=== PATIENT | male | born 1975 | race Hispanic/Latino ===

== ENCOUNTER 2021-07-17 18:33 | Observation (INO) | payer MEDICARE, OTHER ==
[~2021-07-17] VITALS: Ht 182.9 cm; Wt 133.7 kg
[2021-07-17 18:58] LABS: BASOPHILS % (AUTO) 0.6 % (0.0-5.0); EOSINOPHILS % (AUTO) 3.5 % (0.0-8.0); HEMATOCRIT 42.1 % (42-54); LYMPHOCYTES % (AUTO) 31.2 % (21.0-51.0); MEAN CORPUSCULAR HEMOGLOBIN 31.3 pg (27.0-33.0); MEAN CORPUSCULAR HGB CONC 33.5 g/dL (32.0-36.0); MEAN CORPUSCULAR VOLUME 93.6 fL (79-99); MONOCYTES % (AUTO) 7.7 % (3.0-13.0); NEUTROPHILS % (AUTO) 56.7 % (40.0-77.0); PLATELET COUNT (AUTO) 214 K/uL (130-400); RED CELL DISTRIBUTION WIDTH 12.1 % (11.0-15.5); WHITE BLOOD COUNT (AUTO) 6.9 K/uL (4.8-10.8)
[2021-07-17 19:15] LABS: B-TYPE NATRIURETIC PEPTIDE 15 pg/mL (0-100)
[2021-07-17 19:19] LABS: CREATININE 1.2 mg/dL (0.5-1.5); POTASSIUM 4.2 mmol/L (3.5-5.1)
[2021-07-17 19:22] LABS: INR 0.94 (0.85-1.15); PROTHROMBIN TIME 10.3 SEC (9.6-11.6)
[2021-07-17 19:29] LABS: ALBUMIN 3.6 g/dL (3.5-5.0); BILIRUBIN,TOTAL 0.2 mg/dL (0.2-1.0); TOTAL PROTEIN, SERUM 7.2 g/dL (6.0-8.3)
[2021-07-17] MEDS ORDERED: ASPIRIN 325MG TAB PO ONE (22:30)
[2021-07-17] MEDS ORDERED: ORPHENADRINE CITRATE 30 MG/ML ML IV ONE (22:30)
[2021-07-17] MEDS ORDERED: 0.9%NACL 1000ML 1,000 ML IV ONE (22:30)
[2021-07-17 22:48] LABS: APPEARANCE,URINE Cloudy (CLEAR); BILIRUBIN,URINE Negative (NEGATIVE); COLOR,URINE Yellow (YELLOW); GLUCOSE, URINE (UA) Negative (NEGATIVE); KETONES,URINE Trace mg/dL (NEGATIVE); LEUKOCYTE ESTERASE ,URINE Negative (NEGATIVE); NITRATE,URINE Negative (NEGATIVE); OCCULT BLOOD,URINE Negative (NEGATIVE); PH,URINE 7.5 (5.0-8.0); PROTEIN,URINE Trace mg/dL (NEGATIVE)
[2021-07-17 22:54] LABS: AMPHET/METH SCREEN,URINE NEGATIVE (NEGATIVE); BARBITURATE SCREEN, URINE NEGATIVE (NEGATIVE); BENZODIAZEPINES SCREEN,URINE NEGATIVE (NEGATIVE); CANNABINOID SCREEN,URINE NEGATIVE (NEGATIVE); COCAINE SCREEN,URINE NEGATIVE (NEGATIVE); OPIATE SCREEN,URINE NEGATIVE (NEGATIVE); PHENCYCLIDINE SCREEN,URINE NEGATIVE (NEGATIVE)
[2021-07-17 22:56] LABS: BACTERIA,URINE Rare /HPF (None Seen); RBC,URINE 0-1 /HPF (0-1); SQUAMOUS EPITHELIAL CELL,UR None Seen /HPF (0-2)
[2021-07-17 22:57] LABS: AMORPHOUS SEDIMENT,UR Moderate /LPF (None Seen); WBC,URINE 0-1 /HPF (0-1)
[2021-07-17] MEDS ORDERED: LACTULOSE 20 GM/30 ML UDCUP PO PRN (23:00)
[2021-07-17] MEDS ORDERED: ZOLPIDEM TARTRATE 5 MG TAB PO PRN (23:00)
[2021-07-17] MEDS ORDERED: GUAIFENESIN-DM 200/20 MG 10 ML PO PRN (23:00)
[2021-07-17] MEDS ORDERED: NITROGLYCERIN 0.4 MG SL TAB SL PRN (23:00)
[2021-07-17] MEDS ORDERED: MAG/ALUM/SIMETH 30 ML UDCUP PO PRN (23:00)
[2021-07-17] MEDS ORDERED: ACETAMINOPHEN 325 MG TAB PO PRN ×2 (23:00)
[2021-07-17] MEDS ORDERED: ONDANSETRON 4MG INJ IV PRN (23:00)
[2021-07-17] MEDS ORDERED: ASPIRIN 325MG TAB ONE (23:02)
[2021-07-17] MEDS ORDERED: ORPHENADRINE CITRATE 30 MG/ML ML ONE (23:02)
[2021-07-18] MEDS ORDERED: GLUCAGON 1MG KIT 1 MG ML IM PRN
[2021-07-18] MEDS ORDERED: KETOROLAC 30MG VIAL (30MG/ML) IM PRN
[2021-07-18] MEDS ORDERED: POTASSIUM CHLORIDE 10% ELIXIR 20 MEQ/15 ML UDCUP PO PRN
[2021-07-18] MEDS ORDERED: DEXTROSE 50%-WATER 50 ML DISP.SYRIN IV PRN
[2021-07-18] MEDS ORDERED: KCL 20 MEQ ERTAB PO PRN
[2021-07-18] MEDS ORDERED: POTASSIUM CHLORIDE 20MEQ/100ML 100 ML IV PRN
[2021-07-18] MEDS ORDERED: MAGNESIUM 2GM PREMIX 50ML 50 ML IV PRN
[2021-07-18] MEDS ORDERED: HYDROCODONE/ACETAMINOPHEN 5/325 MG TAB PO PRN
[2021-07-18] MEDS ORDERED: NITROGLYCERIN 0.4 MG SL TAB SL PRN
[2021-07-18] MEDS ORDERED: TRAMADOL HCL 50 MG TABLET PO PRN (00:30)
[2021-07-18] MEDS ORDERED: KETOROLAC 30MG VIAL (30MG/ML) ONE (00:31)
[2021-07-18] MEDS: KETOROLAC 30MG VIAL (30MG/ML) IV PRN ×2 (00:58→10:08)
[2021-07-18 05:50] LABS: BASOPHILS % (AUTO) 0.5 % (0.0-5.0); EOSINOPHILS % (AUTO) 3.7 % (0.0-8.0); HEMATOCRIT 39.7 % (42-54); LYMPHOCYTES % (AUTO) 33.5 % (21.0-51.0); MEAN CORPUSCULAR HEMOGLOBIN 30.9 pg (27.0-33.0); MEAN CORPUSCULAR HGB CONC 33.8 g/dL (32.0-36.0); MEAN CORPUSCULAR VOLUME 91.7 fL (79-99); MONOCYTES % (AUTO) 6.6 % (3.0-13.0); NEUTROPHILS % (AUTO) 55.4 % (40.0-77.0); PLATELET COUNT (AUTO) 191 K/uL (130-400); RED BLOOD CELL COUNT(AUTO) 4.33 MIL/uL (4.50-6.20); RED CELL DISTRIBUTION WIDTH 12.1 % (11.0-15.5); WHITE BLOOD COUNT (AUTO) 6.5 K/uL (4.8-10.8)
[2021-07-18 06:06] LABS: HEMOGLOBIN A1C 6.6 % (4.0-6.0)
[2021-07-18 06:19] LABS: ALBUMIN 3.3 g/dL (3.5-5.0); BILIRUBIN,TOTAL 0.4 mg/dL (0.2-1.0); CREATININE 0.9 mg/dL (0.5-1.5); POTASSIUM 3.8 mmol/L (3.5-5.1); THYROID STIMULATING HORMONE 2.95 uIU/mL (0.36-3.74); TOTAL PROTEIN, SERUM 6.7 g/dL (6.0-8.3)
[2021-07-18] MEDS ORDERED: MORPHINE 4 MG SYG ONE (06:27)
[2021-07-18] MEDS ORDERED: MORPHINE 2 MG SYG IVP SCH (06:30)
[2021-07-18] MEDS: INSULIN HUMULIN R 100 UNIT/ML 3ML SQ SCH ×3 (07:30→16:30)
[2021-07-18 08:25] VITALS: BP 129/68
[2021-07-18] MEDS ORDERED: ENOXAPARIN SODIUM 40 MG/0.4 ML SYRINGE SQ SCH (09:00)
[2021-07-18] MEDS ORDERED: LOSARTAN 50 MG TABLET PO SCH (09:00)
[2021-07-18] MEDS ORDERED: ASPIRIN 81 MG EC TAB PO SCH (09:00)
[2021-07-18] MEDS ORDERED: FAMOTIDINE 20MG VIAL IV SCH (09:00)
[2021-07-18] MEDS: GABAPENTIN 300 MG CAPSULE PO SCH ×2 (10:09→14:33)
[2021-07-18 11:30] VITALS: BP 147/85
[2021-07-18] MEDS ORDERED: LORAZEPAM 2 MG/ML 1 ML VIAL IVP SCH (11:30)
[2021-07-18 13:58] LABS: CHOLESTEROL 182 mg/dL (<200); HDL CHOLESTEROL 40 mg/dL (29-71); LDL DIRECT 131 mg/dL (0-99); TRIGLYCERIDES 62 mg/dL (30-200)
[2021-07-18 16:00] VITALS: BP 155/99
[2021-07-18] MEDS ORDERED: ATORVASTATIN 20 MG TABLET PO SCH (21:00)
[2021-07-18] MEDS ORDERED: TRAZODONE HCL 100 MG TABLET PO SCH (21:00)
== END 2021-07-18 18:30 | disposition home or self-care (01) ==
LOC: EDH 18:33 → EDHIP 22:39 → 3AH 07-18 08:32
PROVIDERS: ADMIT Internal Medicine Critical Care Medicine; ATTEND Internal Medicine Critical Care Medicine
DX: R07.89 Other chest pain (principal); R51.9 Headache, unspecified; R55 Syncope and collapse; E11.9 Type 2 diabetes mellitus without complications; I10 Essential (primary) hypertension; E66.01 Morbid (severe) obesity due to excess calories; G47.33 Obstructive sleep apnea (adult) (pediatric); G89.29 Other chronic pain; M54.9 Dorsalgia, unspecified; F41.9 Anxiety disorder, unspecified; Z86.73 Personal history of transient ischemic attack (TIA), and cerebral infarction without residual deficits; Z76.5 Malingerer [conscious simulation]; Z79.82 Long term (current) use of aspirin; Z79.899 Other long term (current) drug therapy
CPT/HCPCS: 36415 ×2; 70450; 70544; 70547; 70551; 71045; 72100; 80053 ×2; 80061; 80305; 81001; 82550; 82948 ×2; 83036; 83874; 83880; 84443; 84484 ×3; 85025 ×2; 85378; 85610; 93005 ×4; 96361; 96372; 96374; 96375; 96376; 99285; G0378 ×18; J1650; J1885 ×2; J2060; J2270; J2360; J3490